=== PATIENT | male | born 1985 | race Caucasian/White ===

== ENCOUNTER 2017-02-11 18:55 | Emergency (ER) | payer OTHER ==
--- NOTE | 2017-02-11 19:05 | EDPHY ---
H & P Time Seen by Provider: 02/11/17 18:58 HPI/ROS: CHIEF COMPLAINT: The dog bite HISTORY OF PRESENT ILLNESS: Tonight patient had dog bite to the right knee through his pants. 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 REVIEW OF SYSTEMS: No other injuries and no foreign body sensation. 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 Patient is to superficial abrasions each 1 mm diameter on the medial surface of the right knee. The no active bleeding. No knee effusion. Normal range of motion of the knee. There is no surrounding redness. Emergency Department course/MDM: Superficial dog bite. Antibiotic prophylaxis not indicated. Tetanus up-to- date. 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 I do not think he requires immediate rabies prophylaxis in the emergency department given the current history. Constitutional: Initial Vital Signs Temperature (C) 37.1 C 02/11/17 19:19 Heart Rate 88 02/11/17 19:19 Respiratory Rate 16 02/11/17 19:19 Blood Pressure 142/95 H 02/11/17 19:19 O2 Sat (%) 99 02/11/17 19:19 O2 Delivery Mode Room Air Allergies/Adverse Reactions: No Known Allergies Allergy (Unverified 02/11/17 19:23) Home Medications: Medication Instructions Recorded Albuterol [Proventil Inhaler HFA 2 puffs IH Q2-4PRN PRN #1 mdi 05/01/09 (*)] Amoxicillin Trihydrate 500 mg PO Q8 #30 cap 05/01/09 [Amoxicillin 500mg cap] MDM/Departure - Depart Disposition: Home, Routine, Self-Care Clinical Impression: Dog bite of extremity Condition: Good Instructions: Animal Bite (ED) Additional Instructions: No work restrictions. Wound care as discussed. You should have animal Control go to the house tomorrow and confirm whether the dog has had its immunizations including rabies. Referrals: Work Comp Ref/Restrictions [Outside] - As per Instructions
[2017-02-11 19:28] VITALS: BP 142/95; PULSE 88; RESP 16; TEMP 98.8; O2SAT 99
== END 2017-02-11 19:40 | disposition home or self-care (01) ==
DX: S81.051A Open bite, right knee, initial encounter (principal); W54.0XXA Bitten by dog, initial encounter; Y92.69 Other specified industrial and construction area as the place of occurrence of the external cause; Y99.0 Civilian activity done for income or pay; Y93.89 Activity, other specified

== ENCOUNTER 2018-03-30 09:01 | Emergency (ER) | payer OTHER ==
[2018-03-30 09:07] VITALS: BP 134/90
--- NOTE | 2018-03-30 09:21 | EDPHY ---
General Time Seen by Provider: 03/30/18 09:10 Narrative: CHIEF COMPLAINT: Calf pain HISTORY OF PRESENT ILLNESS: Patient presents by private vehicle with spouse with complaints of left calf pain. Pain started last night 10:45 p.m.. 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 Says he landed on his left foot and felt a sudden onset of pain left calf. He says that he landed on the bottom of the foot without twisting a rolling the ankle. He noticed a mild sensation of pain in the left calf at that time. Over the course of the night, and into this morning, the pain is increased. It is rated as moderate to severe with ambulation and pushing on the area. Some improvement rest. Does not radiate. There is no so she hardin numbness, tingling or weakness. He has has pain that spans from the calf to the back of the left knee. He has no pain in the hips or pelvis. He has no back pain. He did not strike his head or lose consciousness. He has no other associated complaints or modifying factors. ESTABLISHED ORTHOPEDIST: None REVIEW OF SYSTEMS: Ten systems reviewed and are negative unless otherwise noted in the HPI PAST MEDICAL HISTORY: Uncomplicated. Orthopedic injuries PAST SURGICAL HISTORY: Orthopedic surgeries. SOCIAL HISTORY: Nonsmoker. 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 Lives independently with his spouse. FAMILY HISTORY: Noncontributory EXAMINATION: General Appearance: Alert, no distress. Well appearing. HEENT: Head is normocephalic and atraumatic. Pupils equal round reactive. Neck: Supple nontender. Cardiovascular: Symmetric DP and PT pulses 2+. Good signs of perfusion to both lower extremities. Neurological: A&O, light sensory symmetric, strength is symmetric at the knees , ankles and great toes. Skin: Warm and dry, no rash. No petechiae or purpura Extremities: Mild tenderness in the left calf centrally. There is no palpable cord. No palpable defect on the left Achilles tendon. There is no bony tenderness of the left hip, left knee, left ankle, left foot or left calcaneus with from palpation. Range of motion lower extremities symmetric, active and passive. All compartments are soft on the left lower extremity. There is no evidence of DVT of either lower extremity. Psychiatric: Mood and affect normal DIFFERENTIAL DIAGNOSES: Including but not limited to left lower extremity sprain, calf strain, Achilles tendon rupture, fracture, dislocation, subluxation, traumatic DVT MDM: 9:10 a.m. Left calf pain with history exam that suggest strain. I do not feel any palpable defects on the Achilles tendon. There is no bony tenderness at any location of the left lower extremity. No evidence of traumatic DVT. He is ambulatory without difficulty per fully neuro intact distally. We discussed ice , rest, elevation and anti-inflammatories. We discussed worker's compensation follow-up for definitive care. We discussed ED precautions for redness, warmth , significant swelling, numbness, tingling or difficulty ambulating. He is comfortable this plan and discharged home stable condition. SUPERVISION: This patient was independently evaluated without direct involvement of or examination by the attending physician. - History Smoking Status: Former smoker - Objective Vital Signs: Initial Vital Signs Temperature (C) 97.3 F 03/30/18 09:04 Heart Rate 80 03/30/18 09:04 Respiratory Rate 18 03/30/18 09:04 Blood Pressure 134/90 H 03/30/18 09:04 O2 Sat (%) 99 03/30/18 09:04 O2 Delivery Mode Room Air Allergies/Adverse Reactions: No Known Allergies Allergy (Verified 03/30/18 09:03) Home Medications: Medication Instructions Recorded NK [No Known Home Meds] 03/30/18 Departure - Departure Disposition: Home, Routine, Self-Care Clinical Impression: Acute pain of left lower extremity Muscle strain of left lower leg Qualifiers: Encounter type: initial encounter Qualified Code(s): S86.912A - Strain of unspecified muscle(s) and tendon(s) at lower leg level, left leg, initial encounter Condition: Good Instructions: Muscle Strain (ED) Additional Instructions: 1. Ibuprofen 600 mg every 6-8 hours as needed for pain 2. Ice and elevate the extremity often 3. Light activity, weight-bearing as tolerated. 4. Follow up with worker's compensation for outpatient definitive care 5. ED precautions for any worsening pain, difficulty ambulating, numbness, tingling, weakness, redness or swelling of the left leg. Referrals: Nuvia Kaba MD [Medical Doctor] - As per Instructions Physician,Emergency DepMD roseanne [Medical Doctor] - As per Instructions Stand Alone Forms: Work Comp Follow Up
== END 2018-03-30 09:25 | disposition home or self-care (01) ==
DX: S86.912A Strain of unspecified muscle(s) and tendon(s) at lower leg level, left leg, initial encounter (principal); X50.9XXA Other and unspecified overexertion or strenuous movements or postures, initial encounter; Y92.9 Unspecified place or not applicable; Y93.9 Activity, unspecified; Y99.0 Civilian activity done for income or pay